=== PATIENT | female | born 2000 | race Caucasian/White ===

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

== ENCOUNTER 2018-12-07 06:50 | Inpatient (IN) | payer OTHER ==
[2018-12-07] MEDS ORDERED: ELECTROLYTE-148 SOLN 500 ML IV SCH ×2 (07:30→08:00)
[2018-12-07] MEDS ORDERED: CITRIC ACID/SODIUM CITRATE 30 ML UNIT-DOSE CUP PO ONE ×3 (07:30→08:18)
[2018-12-07 07:57] VITALS: BMI 31.4
[2018-12-07] MEDS ORDERED: OXYTOCIN 20 UNITS in 0.9% NS 40 UNIT/2,000 ML INFUS.BAG IV ONE (08:16)
--- NOTE | 2018-12-07 08:25 | HP ---
Past Medical History - Admission Chief Complaint: Elective History of Present Illness: 18 yo @ 39 weeks gestation, with previous , is pre op for repeat c -section. She c/o mild contractions pain. History Source: Patient Limitations to Obtaining History: No Limitations - Past Medical History ...: 2 ...Para: 1 ...: 1 ...LMP: 02/24/19 ... Weeks Gestation by Dates: 40.6 ...EDC by Dates: 12/01/18 ...EDC by Sono: 12/14/18 - Past Surgical History Past Surgical History: Yes: Hx Myomectomy: No Hx Transabdominal Cerclage: No - Smoking History Smoking history: Never smoked Have you smoked in the past 12 months: No - Alcohol/Substance Use Hx Alcohol Use: No History of Substance Use: reports: None - Social History Usual Living Arrangement: Yes: With Child History of Recent Travel: No Home Medications - Allergies Allergies/Adverse Reactions: Allergies Allergy/AdvReac Type Severity Reaction Status Date / Time No Known Allergies Allergy Verified 11/01/18 04:12 - Home Medications Home Medications: Ambulatory Orders Prenat 115/Iron Fum/Folic/Dss [ 19 Tablet] 1 tab PO DAILY 08/30/18 Family Disease History - Family Disease History Family History: Unremarkable Review of Systems - Review of Systems Constitutional: reports: No Symptoms Eyes: reports: No Symptoms HENT: reports: No Symptoms Neck: reports: No Symptoms Cardiovascular: reports: No Symptoms Respiratory: reports: No Symptoms Gastrointestinal: reports: No Symptoms Genitourinary: reports: No Symptoms Breasts: reports: No Symptoms Reported Musculoskeletal: reports: No Symptoms Integumentary: reports: No Symptoms Neurological: reports: No Symptoms Endocrine: reports: No Symptoms Hematology/Lymphatic: reports: No Symptoms Psychiatric: reports: No Symptoms Pain Intensity: 2 Physical Exam - Maternity Vital Signs: Vital Signs Temperature 98 F 12/07/18 07:48 Pulse Rate 72 12/07/18 07:48 Respiratory Rate 20 12/07/18 07:48 Blood Pressure 110/72 12/07/18 07:48 O2 Sat by Pulse Oximetry (%) Constitutional: Yes: Well Nourished Eyes: Yes: Conjunctiva Clear HENT: Yes: Atraumatic Neck: Yes: Supple Cardiovascular: Yes: Regular Rate and Rhythm Lungs: Clear to auscultation Breast(s): Yes: WNL - Abdominal Exam/OB Presentation: Vertex Contractions: Yes Intensity: Mild - Physical Exam ...Motor Strength: WNL Psychiatric: Yes: Alert, Oriented Problem List - Problems (1) Previous section Code(s): Z98.891 - HISTORY OF UTERINE SCAR FROM PREVIOUS SURGERY Assessment/Plan Elective Pre op for repeat Consent signed Anesthesia to see patient
[2018-12-07] MEDS ORDERED: ceFAZolin SODIUM 1 GM VIAL ONE (08:27)
[2018-12-07] MEDS ORDERED: PHENYLEPHRINE HCL 10 MG/1 ML SINGLE DOSE VIAL ONE (08:27)
[2018-12-07] MEDS ORDERED: morphine SULFATE/PF 0.5 MG/ML (2cc Syringe - QUVA) ONE (08:27)
[2018-12-07] MEDS ORDERED: ELECTROLYTE-148 SOLN 1,000 ML IV SCH (08:30)
[2018-12-07] MEDS ORDERED: IBUPROFEN 600 MG TABLET (FP) PO PRN (08:41)
[2018-12-07] MEDS ORDERED: MIDAZOLAM HCL 2 MG/2 ML SINGLE DOSE VIAL ONE (09:11)
[2018-12-07] MEDS ORDERED: METHYLERGONOVINE MALEATE 0.2 MG/1 ML AMP IM PRN (09:38)
--- NOTE | 2018-12-07 09:42 | OP ---
Operative Note - Note: Operative Date: 12/07/18 Pre-Operative Diagnosis: Previous Operation: Repeat Low Transverse Findings: Baby boy in LOT position Post-Operative Diagnosis: Same as Pre-op Surgeon: Shayla Casper Adzing And Boring Machine Helper: Mateusz Amezquita Anesthesia: Spinal Specimens Removed: Placenta Estimated Blood Loss (mls): 600 Operative Report Dictated: Yes
[2018-12-07] MEDS ORDERED: OXYTOCIN 20 UNITS in 0.9% NS 20 UNIT/1,000 ML INFUS.BAG IV SCH (09:45)
[2018-12-07] MEDS ORDERED: OXYTOCIN 20 UNITS in 0.9% NS 20 UNIT/1,000 ML INFUS.BAG IV ONE (10:23)
[2018-12-07] MEDS: IBUPROFEN 800 MG/8 ML IJ IVPB PRN (13:14)
[2018-12-07] MEDS: FERROUS SO4 325 MG TABLET (FP) PO SCH ×2 (14:11→22:36)
[2018-12-07] MEDS: PRENATAL VITAMINS W/ FOLIC ACID TABLET (FP) PO SCH (14:11)
--- NOTE | 2018-12-07 14:55 | OP ---
DATE OF OPERATION: 12/07/2018 PREOPERATIVE DIAGNOSIS: Previous section. POSTOPERATIVE DIAGNOSIS: Previous section. PROCEDURE: Repeat low transverse section. SURGEON: Shayla Casper MD ACADEMIC SUPPORT SPECIALIST: AURE Mendoza ANESTHESIA: Spinal. COMPLICATIONS: None. ESTIMATED BLOOD LOSS: 600 mL. DESCRIPTION OF PROCEDURE: Patient was taken to the operating room where spinal anesthesia was administered. Patient was then prepped and draped in appropriate sterile fashion. A Pfannenstiel skin incision was made and carried down through the underlying layer of fascia. The fascia was incised in the midline and extended laterally. The superior aspect of the fascial incision was then grasped with a Yuli clamp, elevated, and the rectus muscle dissected off bluntly. Attention was then turned to the inferior aspect of the fascial incision, which in a similar fashion was then grasped with a Yuli clamp, elevated and the rectus muscle dissected off bluntly. The rectus muscle was then in the midline. The peritoneum identified and entered sharply with the Metzenbaum scissors. The peritoneal incision was then grasped with a pickup and entered sharply with the Metzenbaum scissors. This incision was extended superiorly and inferiorly with good visualization of the bladder. The vesicouterine peritoneum was then grasped with a pickup and entered sharply with the Metzenbaum scissors. This incision was extended laterally and a bladder flap created digitally. The bladder blade was inserted, and the lower uterine segment was incised with a 10 blade. This incision was extended laterally and the head delivered atraumatically. Nose and mouth were suctioned and the cord clamped and cut. The was handed to the waiting crayon sawyer. The placenta was removed manually. The uterus was exteriorized and cleared of all clots and debris. The uterine incision was repaired using 0 Biosyn in a running, locked fashion. A 2nd layer of the same suture was used as a means to provide excellent hemostasis. The pelvis was then completely irrigated. The uterus was returned to the abdomen. The peritoneum was closed using 2-0 Biosyn, and the fascia was reapproximated using 0 Vicryl in a running fashion. The skin was closed in a subcuticular fashion using 3-0 Vicryl. Patient tolerated procedure well. Patient was then taken to PACU in stable condition. PATHOLOGY: Placenta. Eulalia [id number] MTDD
[2018-12-08] MEDS: IBUPROFEN 800 MG/8 ML IJ IVPB PRN (03:03)
--- NOTE | 2018-12-08 08:03 | PN ---
Post Progress Note - Subjective Subjective: Pt seen/evaluated and doing well. pain controlled. tolerating clears, is hungry. has voided. Post Day: 1 Type of Delivery: Repeat C/S Vital Signs: Vital Signs Temperature 98.8 F 12/08/18 05:34 Pulse Rate 60 12/08/18 05:34 Respiratory Rate 20 12/08/18 06:00 Blood Pressure 112/48 L 12/08/18 05:34 O2 Sat by Pulse Oximetry (%) Uterus: Yes: Fundus Firm Incision: Yes: Dressing dry and intact Lochia: Yes: Rubra Lochia, amount: Small Extremities: Yes: Calves non-tender Perineum: Yes: Intact Activity: Ambulating Problem List - Problems (1) delivery delivered Code(s): O82 - ENCOUNTER FOR DELIVERY WITHOUT INDICATION Assessment/Plan cbc pending advance diet as tolerated OOB routine care
[2018-12-08 08:18] LABS: BASO % 0.4 % (0-2.0); EOS % 0.9 % (0-4.5); HEMATOCRIT 34.8 % (32.4-45.2); HEMOGLOBIN 11.6 GM/dL (10.7-15.3); LYMPH % 17.8 % (8-40); MCH 28.7 pg (25.7-33.7); MCHC 33.2 g/dl (32.0-36.0); MEAN CELL VOLUME 86.6 fl (80-96); MEAN PLT VOLUME 9.8 fl (7.5-11.1); MONO % 7.7 % (3.8-10.2); NEUT % 73.2 % (42.8-82.8); PLATELET COUNT 191 K/MM3 (134-434); RBC 4.02 M/mm3 (3.60-5.2); RDW 15.7 % (11.6-15.6); WHITE BLOOD COUNT 9.6 K/mm3 (4.0-10.0)
[2018-12-08] MEDS: oxyCODONE HCL 5 MG TABLET PO PRN ×3 (09:36→20:35)
[2018-12-08] MEDS: SIMETHICONE 80 MG TAB.CHEW (FP) PO PRN ×3 (09:38→20:35)
[2018-12-08] MEDS: ACETAMINOPHEN 325 MG TABLET (FP) PO PRN ×3 (09:38→20:36)
[2018-12-08] MEDS ORDERED: BISACODYL 10 MG SUPP.RECT RC PRN (09:39)
[2018-12-08] MEDS: FERROUS SO4 325 MG TABLET (FP) PO SCH ×2 (09:39→22:55)
[2018-12-08] MEDS: PRENATAL VITAMINS W/ FOLIC ACID TABLET (FP) PO SCH (09:39)
--- NOTE | 2018-12-08 15:17 | PN ---
Progress Note (short form) - Note Progress Note: ANESTHESIA POSTOP 18 YO FEMALE POD #1 S/P C/SECTION, SPINAL Doing well. No complaints. Ambulating VSS, AFebrile Continue current care. Encouraged Ambulation
[2018-12-09] MEDS: ACETAMINOPHEN 325 MG TABLET (FP) PO PRN (00:31)
[2018-12-09] MEDS: SIMETHICONE 80 MG TAB.CHEW (FP) PO PRN ×4 (00:32→21:21)
[2018-12-09] MEDS: oxyCODONE HCL 5 MG TABLET PO PRN ×5 (00:32→21:21)
--- NOTE | 2018-12-09 06:53 | PN ---
Post Progress Note - Subjective Subjective: 18 yo Para 2 status post repeat , seen and evaluated. Doing well. Post Day: 2 Type of Delivery: Repeat C/S Vital Signs: Vital Signs Temperature 98.5 F 12/08/18 21:26 Pulse Rate 73 12/08/18 21:26 Respiratory Rate 18 12/08/18 21:26 Blood Pressure 135/70 12/08/18 21:26 O2 Sat by Pulse Oximetry (%) Breast Exam: Yes: Soft Uterus: Yes: Fundus below umbilicus Incision: Yes: Dressing dry and intact Abdomen/GI: Yes: Abdomen soft, Tolerating PO Lochia: Yes: Rubra Lochia, amount: Small Extremities: Yes: Calves non-tender Perineum: Yes: Intact Activity: Ambulating - Labs Labs: CBC WBC 9.6 K/mm3 (4.0-10.0) 12/08/18 07:55 RBC 4.02 M/mm3 (3.60-5.2) 12/08/18 07:55 Hgb 11.6 GM/dL (10.7-15.3) 12/08/18 07:55 Hct 34.8 % (32.4-45.2) 12/08/18 07:55 MCV 86.6 fl (80-96) 12/08/18 07:55 MCH 28.7 pg (25.7-33.7) 12/08/18 07:55 MCHC 33.2 g/dl (32.0-36.0) 12/08/18 07:55 RDW 15.7 % (11.6-15.6) H 12/08/18 07:55 Plt Count 191 K/MM3 (134-434) 12/08/18 07:55 MPV 9.8 fl (7.5-11.1) 12/08/18 07:55 Absolute Neuts (auto) 7.0 K/mm3 (1.5-8.0) 12/08/18 07:55 Neutrophils % 73.2 % (42.8-82.8) 12/08/18 07:55 Lymphocytes % 17.8 % (8-40) D 12/08/18 07:55 Monocytes % 7.7 % (3.8-10.2) 12/08/18 07:55 Eosinophils % 0.9 % (0-4.5) D 12/08/18 07:55 Basophils % 0.4 % (0-2.0) D 12/08/18 07:55 Nucleated RBC % 0 % (0-0) 12/08/18 07:55 Problem List - Problems (1) Previous section Code(s): Z98.891 - HISTORY OF UTERINE SCAR FROM PREVIOUS SURGERY Assessment/Plan Status post repeat Ambulation Analgesia as needed Continue post op care
[2018-12-09] MEDS: IBUPROFEN 600 MG TABLET (FP) PO PRN ×4 (07:03→21:20)
[2018-12-09] MEDS ORDERED: DIPHTH,PERTUSS(ACELL),TET 0.5 ML DISP.SYRIN IM ONE (10:00)
[2018-12-09] MEDS: FERROUS SO4 325 MG TABLET (FP) PO SCH ×2 (10:00→21:20)
[2018-12-09] MEDS: PRENATAL VITAMINS W/ FOLIC ACID TABLET (FP) PO SCH (10:00)
[2018-12-10] MEDS: oxyCODONE HCL 5 MG TABLET PO PRN ×2 (00:21→08:13)
[2018-12-10] MEDS: ACETAMINOPHEN 325 MG TABLET (FP) PO PRN (00:21)
[2018-12-10] MEDS: IBUPROFEN 600 MG TABLET (FP) PO PRN (08:13)
[2018-12-10] MEDS: SIMETHICONE 80 MG TAB.CHEW (FP) PO PRN (08:13)
[2018-12-10 08:25] LABS: BASO % 0.2 % (0-2.0); EOS % 2.3 % (0-4.5); HEMATOCRIT 32.1 % (32.4-45.2); HEMOGLOBIN 10.9 GM/dL (10.7-15.3); LYMPH % 32.6 % (8-40); MCH 28.8 pg (25.7-33.7); MCHC 33.9 g/dl (32.0-36.0); MEAN CELL VOLUME 85.1 fl (80-96); MEAN PLT VOLUME 9.6 fl (7.5-11.1); MONO % 8.9 % (3.8-10.2); PLATELET COUNT 226 K/MM3 (134-434); RBC 3.77 M/mm3 (3.60-5.2); RDW 16.2 % (11.6-15.6); WHITE BLOOD COUNT 7.4 K/mm3 (4.0-10.0)
[2018-12-10 09:27] VITALS: BP 119/68; PULSE 71; TEMP 97.8
--- NOTE | 2018-12-10 09:52 | DS ---
Physical Exam-TELECOMMUNICATIONS ENGINEER Vital Signs: Vital Signs Temperature 97.8 F 12/10/18 09:20 Pulse Rate 71 12/10/18 09:20 Respiratory Rate 18 12/10/18 09:20 Blood Pressure 119/68 12/10/18 09:20 O2 Sat by Pulse Oximetry (%) Constitutional: Yes: Well Nourished, No Distress Neck: Yes: WNL Cardiovascular: Yes: WNL Respiratory: Yes: WNL Gastrointestinal: Yes: WNL, Soft ....Post : Yes: Uterus firm, Uterus non-tender Breast(s): Yes: WNL Musculoskeletal: Yes: WNL Labs: CBC, BMP 12/10/18 07:00 Delivery - Delivery Type of Anesthesia: Spinal Episiotomy/Laceration: None EBL (cc): 600 Delivery, Single - Stages of Labor Date of Delivery: 12/07/18 Time of Delivery: 08:55 Time Placenta Delivered: 07:57 - Condition of Infant Transition Mgr Rn/Field Research Assistant Present: Yes Name: Kati Polanco Gender: Male Weight: 8 lb 11 oz Position: Left, OT Total Hours ROM (Hrs/Mins): 1 min. - 1 Minute Total Score: 9 5 Minutes Total Score: 9 - Feeding Plan Initial Plan: Elected not to breastfeed exclusively throughout hospitalization Discharge Summary Reason For Visit: C SECTION Current Active Problems delivery delivered (Acute) Previous section (Acute) Procedures: Principal: Section Condition: Good - Instructions Diet, Activity, Other Instructions: Physical activity Resume your normal everyday activity as tolerated no heavy lifting or exercise until seen by your surgeon. You may walk unlimited dominique of and climb stairs. You may resume driving the car when you feel safe and comfortable behind the wheel. No sexual activity as instructed. Wound care If you have a bandage, leave it on, and keep dry for 48-72 hours. After that time discard the outer bandage. If they are tapes on the skin under the out of bandage leave them in place. They will peel off in the next 7 to 10 days. Do Not Peel them off. You may shower the day after surgery. If there are tapes present on the skin, you may shower over them. Diet There are no dietary restrictions. Eat healthy, high-fiber foods. Drink 6 to 8 glasses of liquid each day. This will assist in keeping your bowels are regular. Pain management You may take Tylenol or acetaminophen or Ibuprofen (for example, Motrin, Advil etc.) from my pain prescription medication is ordered should be taken as prescribed for moderate to severe pain. Call MD for any of the following: Severe pain not relieved by medication Fever of 101 or higher Excessive bleeding or drainage on dressing Inability to urinate Disposition: HOME - Home Medications Comprehensive Discharge Medication List: Ambulatory Orders Prenat 115/Iron Fum/Folic/Dss [ 19 Tablet] 1 tab PO DAILY 08/30/18 Ibuprofen [Motrin -] 600 mg PO QID #28 tablet 12/10/18
[2018-12-10] MEDS: FERROUS SO4 325 MG TABLET (FP) PO SCH (10:14)
[2018-12-10] MEDS: PRENATAL VITAMINS W/ FOLIC ACID TABLET (FP) PO SCH (10:15)
--- NOTE | 2018-12-14 17:09 | PATH ---
Surgical Pathology Report Patient Name: JIM MIRANDA Med. Rec. #: [id number] /Age/Gender: 2000 (Age: 18) / F Account: [id number] Location: [facility] OBS/SUPERVISOR COUNSELING AND GUIDANCE Taken: 12/07/2018 Received: 12/08/2018 Reported: 12/14/2018 Physicians: Shayla Casper M.D. Specimen(s) Received PLACENTA Clinical History Repeat Final Diagnosis PLACENTA, SECTION: 615 G THIRD TRIMESTER PLACENTA WITH TRIVASCULAR UMBILICAL CORD AND UNREMARKABLE PLACENTAL MEMBRANES. Electronically Signed Nina Menjivar M.D. Gross Description The specimen is received fresh labeled placenta and is a 615 gram, 19.5 x 12.5 x 2.3 cm. placenta with attached membranes and umbilical cord. The attached membranes are translucent. The centrally attached umbilical cord measures 21 cm. in length and averages 1.2 cm. in diameter. No true knots or strictures are identified. Cut surface of the umbilical cord reveals 3 vessels. The surface is mcgill-blue with minimal fibrin deposition and appropriate caliber vessels. The maternal surface is red-brown with focal defects. Sectioning reveals red-brown, spongy parenchyma. No lesions are identified. Java Manager sections are submitted in three cassettes as follows: 1- membrane rolls and umbilical cord; 2-3- full thickness sections of placenta. AE/12/13/2018 ebram/12/13/2018
== END 2018-12-10 13:15 | disposition home or self-care (01) | DRG 540 ==
LOC: JLDR 06:50 → J3W 11:30
PROVIDERS: ADMIT Obstetrics & Gynecology; ATTEND Obstetrics & Gynecology
PROC: 10D00Z1 Extraction of Products of Conception, Low, Open Approach (ICD-10-PCS; principal; 2018-12-07)
DX: O34.219 Maternal care for unspecified type scar from previous cesarean delivery (principal); Z3A.39 39 weeks gestation of pregnancy; Z37.0 Single live birth
CPT/HCPCS: 36415; 80053; 85025; 85610; 85730; 86593; 86850; 86900; 86901; 88307-TC; 90715

== ENCOUNTER 2021-03-17 15:09 | Emergency (ER) | payer OTHER ==
[2021-03-17 15:31] VITALS: BP 104/64; PULSE 62; TEMP 97.2; BMI 25.7
[2021-03-17] MEDS ORDERED: IBUPROFEN 600 MG TABLET (FP) PO ONE ×2 (17:26→17:28)
== END 2021-03-17 19:51 | disposition home or self-care (01) ==
LOC: JERFT 15:09
DX: S60.221A Contusion of right hand, initial encounter (principal); M79.644 Pain in right finger(s); W22.8XXA Striking against or struck by other objects, initial encounter
CPT/HCPCS: 73130-TC-RT-FY; 99283-25

== ENCOUNTER 2023-05-29 10:02 | Emergency (ER) | payer OTHER ==
[2023-05-29 10:22] VITALS: BP 106/67; PULSE 77; RESP 20; TEMP 98.7; BMI 25.8
[2023-05-29] MEDS ORDERED: ACETAMINOPHEN 500 MG TABLET (FP) ONE (11:24)
[2023-05-29] MEDS ORDERED: FLUCONAZOLE 150 MG TABLET PO ONE (11:24)
[2023-05-29] MEDS: ACETAMINOPHEN 500 MG TABLET (FP) PO ONE (11:26)
[2023-05-29] MEDS: FLUCONAZOLE 150 MG TABLET PO ONE (11:26)
[2023-05-29 11:53] LABS: EPI CELLS 25 /uL (0-25.1); HCG,QUALITATIVE URINE Negative; HYALINE CASTS 1 /uL (0-3.1); URINE APPEARANCE CLEAR; URINE BILIRUBIN NEGATIVE (NEGATIVE); URINE COLOR DK YELLOW; URINE GLUCOSE (UA) NEGATIVE (NEGATIVE); URINE KETONE NEGATIVE (NEGATIVE); URINE LEUK ESTERASE 1+ (NEGATIVE); URINE NITRITE POSITIVE (NEGATIVE); URINE PROTEIN NEGATIVE (NEGATIVE); URINE RBC 25 /uL (0-23.9); URINE WBC 11 /uL (0-25.8)
[2023-05-29 13:48] LABS: URINE BACTERIA 150 /uL (0-1359)
== END 2023-05-29 12:22 | disposition home or self-care (01) ==
LOC: JERFT 10:02
DX: B37.31 Acute candidiasis of vulva and vagina (principal)
CPT/HCPCS: 36415; 81003; 84703; 87070; 87077; 87086; 87186; 87205; 87491; 87591; 99283-25

== ENCOUNTER 2023-06-27 13:35 | Emergency (ER) | payer OTHER ==
[2023-06-27 13:48] VITALS: BP 123/79; PULSE 90; RESP 18; TEMP 97.3; BMI 26.6
[2023-06-27] MEDS ORDERED: ALBUTEROL SO4 2.5/IPRATROPIUM 0.5 INH SOL 3 ML VIAL.NEB. NEB ONE (15:09)
[2023-06-27] MEDS ORDERED: ACETAMINOPHEN 500 MG TABLET (FP) ONE (15:09)
[2023-06-27] MEDS: ALBUTEROL SO4 2.5/IPRATROPIUM 0.5 INH SOL 3 ML VIAL.NEB. NEB ONE (15:11)
[2023-06-27] MEDS: ACETAMINOPHEN 500 MG TABLET (FP) PO ONE (15:11)
== END 2023-06-27 16:09 | disposition home or self-care (01) ==
LOC: JER 13:35 → JERFT 13:35
PROC: 3E0F7GC Introduction of Other Therapeutic Substance into Respiratory Tract, Via Natural or Artificial Opening (ICD-10-PCS; principal; 2023-06-27)
DX: R05.9 Cough, unspecified (principal); R09.81 Nasal congestion; R50.9 Fever, unspecified; J06.9 Acute upper respiratory infection, unspecified; J10.1 Influenza due to other identified influenza virus with other respiratory manifestations; Z20.822 Contact with and (suspected) exposure to COVID-19
CPT/HCPCS: 0241U-QW; 99283-25

== ENCOUNTER 2023-12-26 13:18 | Emergency (ER) | payer OTHER ==
[2023-12-26 13:29] VITALS: BP 110/68; PULSE 79; RESP 18; TEMP 98.3; BMI 25.0
[2023-12-26 14:00] LABS: EPI CELLS 25 /uL (0-25.1); HYALINE CASTS 1 /uL (0-3.1); URINE APPEARANCE CLEAR; URINE BACTERIA 156 /uL (0-1359); URINE BILIRUBIN NEGATIVE (NEGATIVE); URINE COLOR YELLOW; URINE GLUCOSE (UA) NEGATIVE (NEGATIVE); URINE KETONE NEGATIVE (NEGATIVE); URINE LEUK ESTERASE 1+ (NEGATIVE); URINE NITRITE NEGATIVE (NEGATIVE); URINE PROTEIN NEGATIVE (NEGATIVE); URINE RBC 9 /uL (0-23.9); URINE UROBILINOGEN 0.2 mg/dL (0.2-1.0); URINE WBC 8 /uL (0-25.8)
[2023-12-26 14:01] LABS: HCG,QUALITATIVE URINE Negative
[2023-12-26] MEDS ORDERED: FLUCONAZOLE 150 MG TABLET PO ONE (14:21)
[2023-12-26] MEDS ORDERED: ACETAMINOPHEN 500 MG TABLET (FP) ONE (14:21)
[2023-12-26] MEDS: ACETAMINOPHEN 500 MG TABLET (FP) PO ONE (14:22)
[2023-12-26] MEDS: FLUCONAZOLE 150 MG TABLET PO ONE (14:22)
== END 2023-12-26 14:36 | disposition home or self-care (01) ==
LOC: JERFT 13:18
DX: R30.0 Dysuria (principal); B37.31 Acute candidiasis of vulva and vagina; R10.30 Lower abdominal pain, unspecified
CPT/HCPCS: 81003; 84703; 87086; 99283-25